=== PATIENT | female | born 1995 | race African-American/Black ===

== ENCOUNTER 2022-03-11 15:38 | Emergency (ER) | payer MEDICARE, MEDICAID ==
[~2022-03-11] VITALS: Ht 172.7 cm; Wt 55.0 kg
[2022-03-11] MEDS ORDERED: ONDANSETRON HCL 4MG/2ML INJ IV STA (16:30)
[2022-03-11] MEDS ORDERED: KETOROLAC 30MG/ML VIAL IV STA (16:30)
[2022-03-11] MEDS ORDERED: DIPHENHYDRAMINE 50MG/ML VIAL IV ONE (16:30)
[2022-03-11] MEDS ORDERED: MORPHINE SULFATE 4 MG/ML CPJ (NOT FOR IM USE) IV STA (16:30)
[2022-03-11] MEDS ORDERED: MORPHINE SULFATE 4 MG/ML CPJ (NOT FOR IM USE) IV PRN (16:30)
[2022-03-11] MEDS ORDERED: SODIUM CHLORIDE 0.9% 1,000 ML IV ONE (16:30)
[2022-03-11 17:38] LABS: BASOPHILS % 0.9 % (0.0-2.0); EOSINOPHILS % 3.8 % (0.0-5.0); HEMATOCRIT. 23.3 % (36.0-48.0); HEMOGLOBIN. 7.9 g/dL (12.0-16.0); LYMPHOCYTES % 44.4 % (20.0-50.0); MEAN CORPUSCULAR HEMOGLOBIN 30.1 pg (28.0-32.0); MEAN CORPUSCULAR VOLUME 88.3 fL (81.0-99.0); MEAN PLATELET VOLUME 7.8 fl (7.4-10.4); MONOCYTES % 8.9 % (2.0-8.0); PLATELET 523 x1000/uL (130-400); RED BLOOD CELL COUNT 2.64 mill/uL (4.2-5.4); RED CELL DISTRIBUTION WIDTH 22.5 % (11.6-14.6)
[2022-03-11 17:54] LABS: CHLORIDE 107 mEq/L (98-107)
[2022-03-11 19:39] LABS: PLATELET ESTIMATE MARKEDLY INCREASED
[2022-03-11] MEDS ORDERED: MORPHINE SULFATE 4 MG/ML CPJ (NOT FOR IM USE) IV ONE (21:15)
[2022-03-11] MEDS ORDERED: OXYC-105 MT (21:48)
[2022-03-11 21:58] VITALS: BP 103/60
== END 2022-03-11 22:17 | disposition home or self-care (01) ==
LOC: ER 15:38
DX: R52 Pain, unspecified (principal); J45.909 Unspecified asthma, uncomplicated
CPT/HCPCS: 36415; 80053; 85025; 96361; 96374; 96375; 96376; 99284; J1200; J1885; J2270; J2405; J7030

== ENCOUNTER 2022-03-14 07:26 | Inpatient (IN) | payer MEDICARE, MEDICAID ==
[~2022-03-14] VITALS: Ht 162.6 cm; Wt 50.8 kg
[~2022-03-14 07:26] MED LIST: OXYC-105 MT
[2022-03-14] MEDS ORDERED: DIPHENHYDRAMINE 50MG/ML VIAL IV ONE (08:15)
[2022-03-14] MEDS ORDERED: MORPHINE SULFATE 4 MG/ML CPJ (NOT FOR IM USE) IV ONE ×2 (08:15→10:15)
[2022-03-14 08:41] LABS: BASOPHILS % 0.8 % (0.0-2.0); EOSINOPHILS % 5.9 % (0.0-5.0); HEMATOCRIT. 22.4 % (36.0-48.0); HEMOGLOBIN. 7.8 g/dL (12.0-16.0); LYMPHOCYTES % 41.6 % (20.0-50.0); MEAN CORPUSCULAR HEMOGLOBIN 31.2 pg (28.0-32.0); MONOCYTES % 11.2 % (2.0-8.0); NEUTROPHILS % 40.5 % (40.0-76.0); PLATELET 471 x1000/uL (130-400); RED BLOOD CELL COUNT 2.51 mill/uL (4.2-5.4); RED CELL DISTRIBUTION WIDTH 22.6 % (11.6-14.6)
[2022-03-14 08:48] LABS: CHLORIDE 105 mEq/L (98-107)
[2022-03-14 09:23] LABS: PLATELET ESTIMATE SLIGHTLY INCREASED
[2022-03-14] MEDS ORDERED: MORPHINE SULFATE 4 MG/ML CPJ (NOT FOR IM USE) IV STA (13:45)
[2022-03-14] MEDS ORDERED: IPRATROPIUM/ALBUTEROL 0.5-3(2.5)MG/3ML NEB HHN PRN (15:30)
[2022-03-14] MEDS ORDERED: ONDANSETRON HCL 4MG/2ML INJ IV PRN (15:30)
[2022-03-14] MEDS ORDERED: LORAZEPAM 0.5MG TABLET PO PRN (15:30)
[2022-03-14] MEDS ORDERED: GUAIFENESIN 200MG/10ML SUGAR FREE UDC PO PRN (15:30)
[2022-03-14] MEDS ORDERED: DOCUSATE SODIUM 100MG CAPSULE PO PRN (15:30)
[2022-03-14] MEDS ORDERED: HYDROMORPHONE HCL/PF 2MG/ML CPJ IV PRN (15:30)
[2022-03-14] MEDS ORDERED: ACETAMINOPHEN 325MG TABLET PO PRN ×2 (15:30)
[2022-03-14] MEDS ORDERED: CLONIDINE 0.1MG TABLET PO PRN (15:30)
[2022-03-14] MEDS: DEXT 5%/LACTATED RINGERS 1,000 ML IV SCH (15:30)
[2022-03-14] MEDS ORDERED: MAGNESIUM/ALUMINUM HYDROXIDE/SIMETHICONE 30ML UDC PO PRN (15:30)
[2022-03-14] MEDS: ENOXAPARIN 40MG/0.4ML SYR SUBCUT SCH (16:34)
[2022-03-14] MEDS ORDERED: DIPHENHYDRAMINE 50MG/ML VIAL IV PRN (18:45)
[2022-03-14 18:50] LABS: CREATINE KINASE 78 IU/L (26-192); TOTAL IRON BINDING CAPACITY 281 ug/dL (250-450)
[2022-03-14 18:51] VITALS: BP 114/72
[2022-03-14 20:00] VITALS: BP 120/70
[2022-03-14] MEDS: MORPHINE SULFATE 4 MG/ML CPJ (NOT FOR IM USE) IV PRN (20:49)
[2022-03-14] MEDS: DIPHENHYDRAMINE 50MG/ML VIAL IV PRN (20:49)
[2022-03-15] VITALS (10 sets, daily range): BP systolic 110–127; BP diastolic 60–80
[2022-03-15] MEDS: MORPHINE SULFATE 4 MG/ML CPJ (NOT FOR IM USE) IV PRN ×6 (00:57→23:52)
[2022-03-15] MEDS: DIPHENHYDRAMINE 50MG/ML VIAL IV PRN ×6 (01:02→23:52)
[2022-03-15] MEDS: DEXT 5%/LACTATED RINGERS 1,000 ML IV SCH ×2 (04:52→18:46)
[2022-03-15 06:00] LABS: CHLORIDE 106 mEq/L (98-107)
[2022-03-15 06:09] LABS: BASOPHILS % 0.3 % (0.0-2.0); EOSINOPHILS % 6.2 % (0.0-5.0); LYMPHOCYTES % 41.7 % (20.0-50.0); MEAN CORPUSCULAR HEMOGLOBIN 32.1 pg (28.0-32.0); MEAN CORPUSCULAR VOLUME 89.1 fL (81.0-99.0); MEAN PLATELET VOLUME 8.3 fl (7.4-10.4); MONOCYTES % 13.4 % (2.0-8.0); NEUTROPHILS % 38.4 % (40.0-76.0); PLATELET 401 x1000/uL (130-400); RED BLOOD CELL COUNT 2.14 mill/uL (4.2-5.4)
[2022-03-15 06:21] LABS: HDL CHOLESTEROL 34 mg/dL (40-59); LDL CHOLESTEROL 52 mg/dL (5-100)
[2022-03-15 06:36] LABS: HEMATOCRIT. 19.1 % (36.0-48.0); HEMOGLOBIN. 6.9 g/dL (12.0-16.0)
[2022-03-15] MEDS ORDERED: LIDOCAINE HCL/PF 1% 10 MG/ML 5ML VIAL ONE (08:06)
[2022-03-15] MEDS ORDERED: LIDOCAINE HCL 1% 10 MG/ML 10ML VIAL ONE (08:07)
[2022-03-15] MEDS ORDERED: FOLIC ACID 1MG TABLET PO SCH (09:00)
[2022-03-15] MEDS: FOLIC ACID 1MG TABLET PO SCH (09:40)
[2022-03-15] MEDS: ENOXAPARIN 40MG/0.4ML SYR SUBCUT SCH (16:30)
[2022-03-15 17:43] LABS: BASOPHILS % 1.1 % (0.0-2.0); EOSINOPHILS % 4.9 % (0.0-5.0); HEMATOCRIT. 23.7 % (36.0-48.0); HEMOGLOBIN. 8.6 g/dL (12.0-16.0); MEAN CORPUSCULAR HEMOGLOBIN 31.9 pg (28.0-32.0); MEAN CORPUSCULAR VOLUME 87.5 fL (81.0-99.0); MEAN PLATELET VOLUME 7.8 fl (7.4-10.4); PLATELET 432 x1000/uL (130-400); RED BLOOD CELL COUNT 2.71 mill/uL (4.2-5.4); RED CELL DISTRIBUTION WIDTH 20.8 % (11.6-14.6)
[2022-03-15 17:48] LABS: INR 1.1
[2022-03-16] VITALS: BP 125/82
[2022-03-16] MEDS: DEXT 5%/LACTATED RINGERS 1,000 ML IV SCH ×2 (03:56→20:50)
[2022-03-16 04:00] VITALS: BP 119/76
[2022-03-16] MEDS: DIPHENHYDRAMINE 50MG/ML VIAL IV PRN ×2 (05:51→22:37)
[2022-03-16] MEDS: MORPHINE SULFATE 4 MG/ML CPJ (NOT FOR IM USE) IV PRN ×5 (05:51→22:45)
[2022-03-16 08:00] VITALS: BP 125/83
[2022-03-16] MEDS: FOLIC ACID 1MG TABLET PO SCH (09:59)
[2022-03-16 12:00] VITALS: BP 124/77
[2022-03-16 16:00] VITALS: BP 123/73
[2022-03-16] MEDS: KETOROLAC 30MG/ML VIAL IV PRN (17:33)
[2022-03-16] MEDS: ENOXAPARIN 40MG/0.4ML SYR SUBCUT SCH (17:40)
[2022-03-16 20:00] VITALS: BP 110/65
[2022-03-17] VITALS: BP 130/85
[2022-03-17] MEDS: KETOROLAC 30MG/ML VIAL IV PRN (02:19)
[2022-03-17 04:00] VITALS: BP 124/73
[2022-03-17] MEDS: DIPHENHYDRAMINE 50MG/ML VIAL IV PRN ×2 (04:12→10:56)
[2022-03-17] MEDS: MORPHINE SULFATE 4 MG/ML CPJ (NOT FOR IM USE) IV PRN ×4 (05:02→22:16)
[2022-03-17 06:00] LABS: BASOPHILS % 1.3 % (0.0-2.0); EOSINOPHILS % 8.5 % (0.0-5.0); HEMATOCRIT. 23.5 % (36.0-48.0); HEMOGLOBIN. 8.4 g/dL (12.0-16.0); LYMPHOCYTES % 45.7 % (20.0-50.0); MEAN CORPUSCULAR HEMOGLOBIN 31.8 pg (28.0-32.0); MEAN CORPUSCULAR VOLUME 88.6 fL (81.0-99.0); MEAN PLATELET VOLUME 7.9 fl (7.4-10.4); MONOCYTES % 13.3 % (2.0-8.0); NEUTROPHILS % 31.2 % (40.0-76.0); PLATELET 414 x1000/uL (130-400); RED BLOOD CELL COUNT 2.65 mill/uL (4.2-5.4); RED CELL DISTRIBUTION WIDTH 20.1 % (11.6-14.6)
[2022-03-17 06:06] LABS: CHLORIDE 109 mEq/L (98-107)
[2022-03-17 08:20] VITALS: BP 110/63
[2022-03-17] MEDS: FOLIC ACID 1MG TABLET PO SCH (09:39)
[2022-03-17] MEDS: DEXT 5%/LACTATED RINGERS 1,000 ML IV SCH ×2 (10:55→23:30)
[2022-03-17 12:00] VITALS: BP 122/76
[2022-03-17] MEDS ORDERED: FOLI-43 MT (13:55)
[2022-03-17 16:00] VITALS: BP 134/98
[2022-03-17] MEDS ORDERED: NALOXONE HCL 0.4MG/ML VIAL IV PRN (17:00)
[2022-03-17] MEDS: ENOXAPARIN 40MG/0.4ML SYR SUBCUT SCH (18:06)
[2022-03-17] MEDS: OXYCODONE HCL 5MG TABLET PO PRN (18:06)
[2022-03-17 20:00] VITALS: BP 119/72
[2022-03-18] VITALS: BP 122/69
[2022-03-18 04:00] VITALS: BP 117/72
[2022-03-18] MEDS: OXYCODONE HCL 5MG TABLET PO PRN ×3 (04:05→15:13)
[2022-03-18 05:39] LABS: CHLORIDE 109 mEq/L (98-107)
[2022-03-18] MEDS: MORPHINE SULFATE 4 MG/ML CPJ (NOT FOR IM USE) IV PRN (06:31)
[2022-03-18 07:31] LABS: BASOPHILS % 0.8 % (0.0-2.0); EOSINOPHILS % 11.2 % (0.0-5.0); HEMATOCRIT. 23.2 % (36.0-48.0); HEMOGLOBIN. 8.2 g/dL (12.0-16.0); LYMPHOCYTES % 41.5 % (20.0-50.0); MEAN CORPUSCULAR HEMOGLOBIN 31.4 pg (28.0-32.0); MEAN CORPUSCULAR VOLUME 89.1 fL (81.0-99.0); MEAN PLATELET VOLUME 8.5 fl (7.4-10.4); MONOCYTES % 13.7 % (2.0-8.0); NEUTROPHILS % 32.8 % (40.0-76.0); PLATELET 307 x1000/uL (130-400); RED CELL DISTRIBUTION WIDTH 18.7 % (11.6-14.6)
[2022-03-18 08:00] VITALS: BP 115/78
[2022-03-18] MEDS: FOLIC ACID 1MG TABLET PO SCH (10:37)
[2022-03-18 12:00] VITALS: BP 117/69
[2022-03-18] MEDS: DIPHENHYDRAMINE 50MG/ML VIAL IV PRN (12:41)
[2022-03-18] MEDS: DEXT 5%/LACTATED RINGERS 1,000 ML IV SCH (12:50)
[2022-03-18 15:45] VITALS: BP 117/69
[2022-03-26 14:09] LABS: HGB A2 2.9 % (1.8-3.2); HGB F 6.1 % (0.0-2.0); HGB F Reflexed % (0.0-2.0); HGB S Reflexed % (0.0)
== END 2022-03-18 16:51 | disposition home or self-care (01) | DRG 812 ==
LOC: ER 07:26 → 6EST 13:32 → ENRESERV 13:48
PROVIDERS: ADMIT Family Medicine Adult Medicine; ATTEND Family Medicine Adult Medicine
PROC: 30233N1 Transfusion of Nonautologous Red Blood Cells into Peripheral Vein, Percutaneous Approach (ICD-10-PCS; principal; 2022-03-15)
PROC: 02HV33Z Insertion of Infusion Device into Superior Vena Cava, Percutaneous Approach (ICD-10-PCS; 2022-03-15)
PROC: B5181ZA Fluoroscopy of Superior Vena Cava using Low Osmolar Contrast, Guidance (ICD-10-PCS; 2022-03-15)
PROC: B548ZZA Ultrasonography of Superior Vena Cava, Guidance (ICD-10-PCS; 2022-03-15)
DX: D57.00 Hb-SS disease with crisis, unspecified (principal); D59.9 Acquired hemolytic anemia, unspecified; Z20.822 Contact with and (suspected) exposure to COVID-19; J45.909 Unspecified asthma, uncomplicated; E80.6 Other disorders of bilirubin metabolism; Z88.8 Allergy status to other drugs, medicaments and biological substances; Z79.899 Other long term (current) drug therapy
CPT/HCPCS: 36415; 36573; 71045; 80048; 80053; 80061; 80076; 82550; 83021; 83540; 83550; 83605; 83880; 84443; 84484; 85025; 85044; 85660; 86850; 86900; 86920; 87426; 99285; C1725; C1893; J1170; J1200; J1650; J1885; J2270; J3490; J7070; P9016